=== PATIENT | female | born 1945 | race Caucasian/White ===

== ENCOUNTER → 2023-08-23 12:00 | Outpatient (REF) | payer MEDICARE, OTHER, SELFPAY | LOC: WDC 12:00 | PROVIDERS: ATTENDING PHYSICIAN Obstetrics & Gynecology Gynecology; FAMILY PHYSICIAN Internal Medicine | DX: Z12.31 Encounter for screening mammogram for malignant neoplasm of breast (principal) | CPT/HCPCS: 77063; 77067 ==

== ENCOUNTER → 2024-02-21 09:21 | Outpatient (REF) | payer MEDICARE, OTHER, SELFPAY | LOC: RAD 09:21 | PROVIDERS: ATTENDING PHYSICIAN Internal Medicine | DX: M50.30 Other cervical disc degeneration, unspecified cervical region (principal) | CPT/HCPCS: 72050 ==

== ENCOUNTER 2024-04-12 00:53 | Emergency (ER) | payer MEDICARE, OTHER, SELFPAY ==
[2024-04-12 00:58] VITALS: BP 177/85
[2024-04-12 03:17] VITALS: BP 138/95
[2024-04-12 03:34] LABS: % Basophils 0.5 % (0-2); % Immature Granulocytes 0.4 % (0-0.5); % Lymphocytes 20.9 % (20.5-51.1); % Monocytes 8.9 % (1.7-9.3); % Neutrophils 65.3 % (42.2-75.2); Absolute Eosinophils 0.3 10^3/uL (0-0.7); Absolute Lymphocytes 1.6 10^3/uL (1.2-3.4); Absolute Monocytes 0.7 10^3/uL (0.1-0.6); Absolute Neutrophils 5.1 10^3/uL (1.4-6.5); Hematocrit 37.5 % (37.0-47.0); Hemoglobin 12.8 g/dL (12.0-16.0); Mean Corp Hgb Conc. 34.1 g/dL (33.0-37.0); Mean Corpuscular Hgb 31.1 pg (27.0-31.0); Mean Corpuscular Volume 91.2 fL (81.0-99.0); Mean Platelet Volume 9.2 fL (7.4-10.4); Nucleated Red Blood Cells % 0 %; Platelet Count 199 10^3/uL (130-400); Red Blood Cell Count 4.11 10^6/uL (4.20-5.40); Red Cell Dist. Width 12.3 % (11.5-14.5); White Blood Cell Count 7.7 10^3/uL (4.8-10.8)
[2024-04-12 03:48] LABS: ALT (SGPT) 27 U/L (0-35); AST (SGOT) 37 U/L (14-36); Albumin 4.7 g/dl (3.5-5.0); Alkaline Phosphatase 67 U/L (38-126); Blood Urea Nitrogen 29 mg/dl (7-17); Calcium 10.8 mg/dl (8.4-10.2); Carbon Dioxide 24 mmol/L (22-30); Chloride 105 mmol/L (98-107); Glucose 98 mg/dl (70-99); Sodium 141 mmol/L (135-145); Total Bilirubin 0.5 mg/dl (0.2-1.3); Total Protein 7.2 g/dl (6.3-8.2); eGFR > 60.00
[2024-04-12 04:00] VITALS: BP 129/60
[2024-04-12 04:00] LABS: Troponin I < 0.012 ng/ml
[2024-04-12 04:39] VITALS: BMI 24.3
[2024-04-12 05:00] VITALS: BP 149/70
[2024-04-12] MEDS: BENADRYL 25 MG IV (05:06)
[2024-04-12] MEDS: PEPCID 20 MG IV (05:07)
[2024-04-12] MEDS: DECADRON 10 MG IV (05:07)
[2024-04-12 05:46] LABS: Lipase 188 U/L (23-300)
--- NOTE | 2024-04-12 06:08 | ED.GENMED ---
History of Present Illness
General
Chief Complaint: Chest Pain
Source: patient
Exam Limitations: none
Time Seen by Provider: 04/12/24 06:02
History of Present Illness
History of Present Illness:
See MDM
Past History
Past History
ED Past Medical History: Negative HTN, Hypercholesterolemia, IDDM or NIDDM
ED Past Surgical History: Negative Cardiac
Social History
Tobacco: Non-smoker
Alcohol: Occasional
Drug: None
Personal:
Living: with family
Employment: Retired
Family History
Family History: CAD
Phy Exam
Physical Exam
Physical Exam:
See MDM
Scores
Heart Score for Chest Pain Patients
STEMI patient?: No
History: Slightly or Non-Suspicious
ECG: Normal
Age: >/= 65 years
Risk Factors: 1 or 2 Risk Factors
Troponin: </= Normal Limit
Heart Score for Chest Pain Patients: 3
Heart Score Risk: 2.5% MACE over next 6 weeks
Course
Orders/Labs/Results
Orders:
Orders
04/12/24 00:55
EKG [Electrocardiogram (*1)] Urgent
Reason for Study: Chest Pain
EKG- Treatment ONCE
04/12/24 03:21
Complete Blood Count/With Diff Urgent
Comprehensive Metabolic Panel Urgent
Lipase Urgent
Comment: ADD ON
Troponin I Urgent
04/12/24 05:00
Add On- LAB Urgent
Tests Added?: LIPASE
Dexamethasone Sod Phosphate [Decadron] 10 mg IV NOW STA
Diphenhydramine [Benadryl] 25 mg IV NOW STA
Famotidine [Pepcid] 20 mg IV NOW STA
04/12/24 05:57
Troponin I Urgent
04/12/24 06:08
HydrOXYZINE [Atarax] 25 mg PO NOW STA
Abnormal Lab Results
04/12/24
03:21
RBC 4.11 L 10^6/uL
(4.20-5.40)
MCH 31.1 H pg
(27.0-31.0)
Absolute Monos (auto) 0.7 H 10^3/uL
(0.1-0.6)
BUN 29 H mg/dl
(7-17)
Calcium 10.8 H mg/dl
(8.4-10.2)
AST 37 H U/L
(14-36)
04/12/24 03:21
04/12/24 03:21
Vital Signs
Initial and Last Documented VS:
Initial Vital Signs
Temp Pulse Resp BP Pulse Ox
99.1 F 61 18 177/85 100
04/12/24 00:58 04/12/24 00:58 04/12/24 00:58 04/12/24 00:58 04/12/24 00:58
Last Documented Vital Signs
Temp Pulse Resp BP Pulse Ox
99.1 F 62 14 138/95 100
04/12/24 00:58 04/12/24 03:17 04/12/24 03:17 04/12/24 03:17 04/12/24 04:40
MDM/Problems Addressed
Differential Diagnosis Includes:
HPI and MDM Narrative:
78-year-old female presenting with chest and abdominal pain and urticaria. Patient states her living facility added a new salad dressing. She had 2 doses of this salad dressing and started to develop her symptoms. On arrival, IV was placed and
patient was given Benadryl, Pepcid and Decadron. Her hives are improving. Nursing indicated that she had 1 large burp and all of her chest and abdominal pain resolved
On exam, she is extremely well-appearing nontoxic. Abdomen soft nontender. EKG nonischemic. First troponin negative. Will obtain second troponin
Physical exam
General: Well appearing and non-toxic
HEENT: protecting airway
Neck: appears supple
CV: No evidence of cyanosis. Regular rate and rhythm
Resp: No accessory muscle use. Lungs clear
Abd: Non-distended and nontender
Extremities: No deformities
Neuro: alert
Psych: Normal affect
Skin: Mild urticaria to back
Problems Addressed including Acute and Chronic Conditions affecting care:
1. Chest and abdominal pain
Acuity: acute
Prognosis: stable
Details: Likely GI related. EKG nonischemic. Will obtain 2 troponin rule out
2. Hives
Acuity: acute
Prognosis: stable
Details: Possibly in the setting of allergic reaction to the new salad dressing. Patient started on steroids
Updates
7:15 AM repeat troponin negative. Patient feels comfortable going home
Differential Diagnosis (but not limited to): Noncardiac chest pain, gastritis, esophagitis, allergic reaction
Testing considered: Chest x-ray but all symptoms resolved
Drug therapy (if applicable): OTC meds, please see d/c instruction regarding Rx drugs
Amount and/or Complexity of Data Reviewed
Clinical info obtained from: Patient
External data reviewed: N/A
Labs I independently reviewed (but not limited to): Troponin normal
Radiology: N/A
Pulse Ox: not hypoxic
EKG independently reviewed: Sinus rhythm, normal axis, no STEMI
Dragger: N/A
Critical Care: N/A
Risk of Complication:
Social Determinants of health: Good social support
Discussed with other providers: N/A
Escalation of Care includes Admit/Obs: After being observed in the Emergency Department, pt stable for discharge.
Occasional wrong word or 'sound a like' substitutions may have occurred due to the inherent limitations of voice recognition software. Read the chart carefully and recognize, using context, where substitutions have occurred.
*Critical Care Note
Total Time (30-74mins, 75-104mins- exclusive of procedures): Not Applicable
ED Attending Note
-
Portions of this chart may have been created with voice recognition software.� Occasional wrong word or��sound alike� substitutions may have occurred due to the inherent limitations of voice recognition software.
Discharge Plan
Departure
Patient Disposition: Home (Routine Discharge)
Date of Disposition: 04/12/24
Time of Disposition: 07:16
Patient with high blood pressure during this ER visit?: No
Discharge Problem:
Chest pain, Urticaria
Instructions: Chest Pain That Is Not Caused by the Heart (DC), Allergic Reaction ED
Prescriptions:
New
prednisone 20 mg tablet
40 mg PO DAILY Qty: 10 0RF
hydroxyzine HCl 25 mg tablet
25 mg PO BID PRN (Reason: anxiety ) Qty: 20 0RF
No Action
alprazolam 0.25 MG tablet
0.25 mg PO DAILY PRN (Reason: anxiety)
lisinopril-hydrochlorothiazide 1 EACH tablet
1 ea PO DAILY
Referrals:
Emir Cisneros MD [Family Provider] -
Activity Restrictions/Additional Instructions:
Please return for any worsening symptoms.
You may return at any time if you have further concerns.
Please follow up with your doctor at the first available appointment, preferably this week.
Thank you for choosing [facility].
Interventions
Interventions:
*Risk Screen - Suicide Last Done: 04/12/24 00:58
*General Assessment Last Done: 04/12/24 04:40
*Neglect/Abuse Screening Last Done: 04/12/24 04:40
ED- Fall Risk Assessment Last Done: 04/12/24 04:40
ED- Cardiac Assessment Last Done: 04/12/24 04:40
Discharge Date and Time
Print Language: KYRGYZ
[2024-04-12] MEDS: ATARAX 25 MG PO (06:16)
[2024-04-12 06:41] LABS: Troponin I < 0.012 ng/ml
[2024-04-12 07:00] VITALS: BP 147/79
== END 2024-04-12 08:00 | disposition home or self-care (01) ==
LOC: EMR 00:53
PROVIDERS: Emergency Medicine; EMERGENCY PHYSICIAN Student in an Organized Health Care Education/Training Program; FAMILY PHYSICIAN Internal Medicine
DX: R07.89 Other chest pain (principal); L50.9 Urticaria, unspecified; Z82.49 Family history of ischemic heart disease and other diseases of the circulatory system
CPT/HCPCS: 99283; 96374; 96375; 80053; 83690; 84484; 85025; 93005

== ENCOUNTER 2024-04-13 01:30 | Emergency (ER) | payer MEDICARE, OTHER, SELFPAY ==
[2024-04-13 01:37] VITALS: BP 163/87
[2024-04-13 01:52] VITALS: BMI 25.4
--- NOTE | 2024-04-13 02:33 | ED.GENMED ---
History of Present Illness
<RAFAEL Hodges - Last Filed: 04/13/24 03:06>
General
Chief Complaint: Skin Problem
Time Seen by Provider: 04/13/24 02:32
History of Present Illness
History of Present Illness:
Patient is a 78 year old female presenting to the ED with a rash x 2 days. The rash started Sunday morning when she woke up feeling anxious. She claims the rash started on her abdomen and both underarms but has spread to the back of her head, her
back, and her arms. The patient states the rash is itchy and red and said it was hives. She has never had hives before. The itches are exacerbated when something touches the rash. She claims that the rash started in the areas she uses a loofa for
when she takes hot showers. She tried Benadryl Sunday which did not help. She was seen here yesterday and was discharged with prednisone and hydroxyzine HCl. She took the prednisone at 4pm which she stated has not helped the rash go away. She also
tried a cortisol cream around 1am which apparently has helped.
Patient has an allergy to PCN where she gets rashes but denies any exposure. She also denies any exposure to new foods or drinks. She states she goes for walks and sweats a lot which could cause the rashes.
Past History
<RAFAEL Hodges - Last Filed: 04/13/24 03:06>
Past History
ED Past Medical History: Negative HTN, Hypercholesterolemia, IDDM or NIDDM
ED Past Surgical History: Negative Cardiac
Social History
Tobacco: Non-smoker
Alcohol: Occasional
Drug: None
Personal:
Living: with family
Employment: Retired
Family History
Family History: CAD
Review of Systems
<RAFAEL Hodges - Last Filed: 04/13/24 03:06>
Review of Systems
Constitutional: Reports no symptoms
Respiratory: Reports no symptoms
Cardiac: Reports no symptoms
Skin: Reports itching (constant, worse when something touches the rash) and rash (hives in underarms back of head, back, abdomen, arms )
Neurological: Reports no symptoms
Phy Exam
<Conrad MaggieRAFAEL - Last Filed: 04/13/24 03:06>
General Physical Exam
General Presentation: mild distress
General age: appears stated age
General Habitus: normal
General Mental: alert
Cardiovascular Exam
Cardiovascular Exam: regular rate/rhythm, no edema, no gallop, no JVD and no murmur
Pulmonary Exam
Pulmonary Exam: lungs clear, no respiratory distress, no rales, chest non tender, no crackles, no rhonchi, no stridor, no wheezing and no cough
Skin Exam
Skin Exam: erythema, redness and other (hives scattered along both arms, underarms, back of neck, abdomen, back. Most dense in underarms )
Course
<RAFAEL Hodges - Last Filed: 04/13/24 03:06>
Orders/Labs/Results
Orders:
Orders
04/13/24 03:19
Diphenhydramine [Benadryl] 50 mg IM NOW STA
Vital Signs
Initial and Last Documented VS:
Initial Vital Signs
Temp Pulse Resp BP Pulse Ox
98 F 64 16 163/87 97
04/13/24 01:37 04/13/24 01:37 04/13/24 01:37 04/13/24 01:37 04/13/24 01:37
Last Documented Vital Signs
Temp Pulse Resp BP Pulse Ox
98 F 78 18 144/70 99
04/13/24 01:37 04/13/24 03:00 04/13/24 03:00 04/13/24 03:00 04/13/24 03:00
<Olga Barron DO - Last Filed: 04/13/24 04:34>
Orders/Labs/Results
Orders:
Orders
04/13/24 03:19
Diphenhydramine [Benadryl] 50 mg IM NOW STA
Vital Signs
Initial and Last Documented VS:
Initial Vital Signs
Temp Pulse Resp BP Pulse Ox
98 F 64 16 163/87 97
04/13/24 01:37 04/13/24 01:37 04/13/24 01:37 04/13/24 01:37 04/13/24 01:37
Last Documented Vital Signs
Temp Pulse Resp BP Pulse Ox
98 F 78 18 144/70 99
04/13/24 01:37 04/13/24 03:00 04/13/24 03:00 04/13/24 03:00 04/13/24 03:00
<RAFAEL Hodges - Last Filed: 04/13/24 03:06>
MDM/Problems Addressed
Differential Diagnosis Includes:
hives, drug allergy,
MDM/Problems Addressed:
give topical cream, try more steroids
<RAFAEL Hodges - Last Filed: 04/13/24 03:06>
*Critical Care Note
Total Time (30-74mins, 75-104mins- exclusive of procedures): Not Applicable
<Olga Barron DO - Last Filed: 04/13/24 04:34>
*Pulse Oximetry
Patient hypoxic: no
ED Attending Note
<RAFAEL Hodges - Last Filed: 04/13/24 03:06>
-
Portions of this chart may have been created with voice recognition software.� Occasional wrong word or��sound alike� substitutions may have occurred due to the inherent limitations of voice recognition software.
<Olga Barron DO - Last Filed: 04/13/24 04:34>
ED Attending Note
Patient seen and examined by attending physician: Yes
I performed the substantive portion of visit, reviewed & personally made and approve the management plan that is documented in note by myself or DOMINGA.: Yes
ED Attending Note:
This is a 78-year-old woman who has history of hypertension, anxiety who initially presented to this ED yesterday morning with complaints of chest pain associated with hives. Has been using a new salad dressing for several days and noted
intermittent truncal urticaria along with lower substernal chest pain that promptly resolved after burping.
ED visit unremarkable with no evidence of ACS. Laboratory studies were unremarkable. Hives resolved promptly after an IV dose of Benadryl, Decadron, Pepcid and she was discharged to home with a 5-day prescription for prednisone 40 mg daily as well
as a prescription for as needed hydroxyzine.
Patient states she was feeling well with complete resolution of hives until after taking a shower around 5 PM and using a new [employer] poof sponge along with a new liquid soap which she has been using over the past 1 to 2 weeks.
She notes generalized truncal urticaria that extends to her posterior neck and posterior scalp. She denies sore throat nor facial swelling, no coughing or shortness of breath, no abdominal pain, no nausea nor vomiting or diarrhea. No further chest
pain.
Other than using this new soap and salad dressing she denies known exposure to any new household products nor medications. No recent antibiotic use.
She took 2 Benadryl around 8 PM without relief. Mild relief with topical hydrocortisone cream.
GENERAL: 78-year-old woman appears her stated age, awake and alert, pleasant, mildly anxious otherwise in no acute distress.
EYE: anicteric
NECK: Supple, nontender, no meningismus, no significant adenopathy.
ENT: No angioedema. Posterior pharynx is clear. Oral mucosa is moist. No rhinorrhea.
CARDIAC: Regular rate and rhythm. no murmur.
LUNGS: Clear breath sounds bilaterally, no acute respiratory distress, no wheezes/rales/rhonchi
ABDOMEN: Soft, nondistended, without focal tenderness
NEUROLOGICAL: Alert and oriented x3, no focal neuro deficits. Gait is calderon and steady.
SKIN: Warm and dry, normal color, skin intact. Generalized urticarial rash to anterior/posterior trunk, posterior neck and scattered to occipital scalp.
MUSCULOSKELETAL: No C/C/E. peripheral pulses are full and equal b/l. No palpable tenderness.
PSYCH: Normal and appropriate interaction.
Patient presents with recurrent urticaria but no evidence of anaphylaxis. Urticaria could certainly be
Related to new soap product and recommend she discontinue this.
She reports no relief with 2 Benadryl taken at 8 PM. Will give an IM dose of Benadryl now and continue to observe.
04/13/2024 0432 AM
Patient resting comfortably.
Urticaria is resolving.
Will discharge to home with recommendations for prompt follow-up with PCP for recheck.
Continue current course of prednisone.
Recommend adding a short course of once daily nondrowsy antihistamine such as Claritin or Zyrtec. Along with this if hives recur she may take 50 mg of Benadryl every 4-6 hours as needed. She may add hydroxyzine as needed for itch.
Discharge Plan
Departure
Patient Disposition: Home (Routine Discharge)
Date of Disposition: 04/13/24
Time of Disposition: 04:32
Patient with high blood pressure during this ER visit?: No
Condition: Good
Discharge Problem:
Urticaria
Instructions: Hives
Prescriptions:
No Action
alprazolam 0.25 MG tablet
0.25 mg PO DAILY PRN (Reason: anxiety)
prednisone 20 mg tablet
40 mg PO DAILY Qty: 10 0RF
hydroxyzine HCl 25 mg tablet
25 mg PO BID PRN (Reason: anxiety ) Qty: 20 0RF
lisinopril 10 mg Tablet
10 mg PO DAILY
hydrochlorothiazide 25 mg Tablet
25 mg PO DAILY
Referrals:
Emir Cisneros MD [Family Provider] - Call in 1-3 days for appt
Interventions
Interventions:
*Risk Screen - Suicide Last Done: 04/13/24 01:37
*General Assessment Last Done: 04/13/24 01:37
*Neglect/Abuse Screening Last Done: 04/13/24 01:37
ED- Fall Risk Assessment Last Done: 04/13/24 01:52
*ED COVID-19 Vaccine History Last Done: 04/13/24 01:52
ED-Skin Assessment Last Done: 04/13/24 03:33
Discharge Date and Time
Print Language: NEPALESE
[2024-04-13 03:00] VITALS: BP 144/70
[2024-04-13] MEDS: BENADRYL 50 MG IM (03:29)
[2024-04-13 04:00] VITALS: BP 134/69
== END 2024-04-13 04:43 | disposition home or self-care (01) ==
LOC: EMR 01:30
PROVIDERS: EMERGENCY PHYSICIAN Emergency Medicine; FAMILY PHYSICIAN Internal Medicine
DX: L50.9 Urticaria, unspecified (principal); L29.9 Pruritus, unspecified; R07.2 Precordial pain; Z88.0 Allergy status to penicillin
CPT/HCPCS: 99284; 96372